=== PATIENT | female | born 1950 | race Caucasian/White ===

== ENCOUNTER 2017-05-02 23:33 | Emergency (ER) | payer MEDICARE, OTHER ==
[~2017-05-02] VITALS: Ht 157.5 cm; Wt 117.9 kg
[~2017-05-02 23:33] MED LIST: CEPHALEXIN500 MG PO; DOXYCYCLINE HY100 MG PO; HYDROXYZINE HCL50 MG PO; IBUPROFEN400 MG PO; MEDROL4 MG PO; NORCO 5-325 TA1 EACH PO
[2017-05-02] MEDS ORDERED: BENADRYL ALLERG25 MG PO (23:53)
[2017-05-03] MEDS ORDERED: FLUOCINONIDE15 G1 TOP (00:22)
[2017-05-03] MEDS ORDERED: DOXYCYCLINE HY100 MG PO (00:22)
== END 2017-05-03 00:40 | disposition home or self-care (01) ==
LOC: ED 23:33
DX: L30.1 Dyshidrosis [pompholyx] (principal); Z88.0 Allergy status to penicillin; Z88.2 Allergy status to sulfonamides; Z91.040 Latex allergy status; Z91.018 Allergy to other foods; Z79.899 Other long term (current) drug therapy
CPT/HCPCS: 99283

== ENCOUNTER 2021-01-22 19:20 | Emergency (ER) | payer MEDICARE, OTHER ==
[~2021-01-22] VITALS: Ht 157.5 cm; Wt 116.1 kg
[~2021-01-22 19:20] MED LIST changes: +BENADRYL ALLERG25 MG PO; +FLUOCINONIDE15 G1 TOP
[2021-01-22] MEDS ORDERED: PRAVASTATIN SOD10 MG PO (19:36)
[2021-01-22] MEDS ORDERED: LISINOPRIL-HCT1 EACH PO (19:36)
== END 2021-01-22 20:37 | disposition home or self-care (01) ==
LOC: ED 19:20
DX: R04.0 Epistaxis (principal); Z88.0 Allergy status to penicillin; Z88.2 Allergy status to sulfonamides; Z88.1 Allergy status to other antibiotic agents; Z91.040 Latex allergy status; Z91.018 Allergy to other foods; Z79.899 Other long term (current) drug therapy
CPT/HCPCS: 99283

== ENCOUNTER 2021-06-07 12:09 | Emergency (ER) | payer MEDICARE, OTHER ==
[~2021-06-07] VITALS: Ht 157.5 cm; Wt 116.1 kg
[~2021-06-07 12:09] MED LIST changes: +LISINOPRIL-HCT1 EACH PO; +PRAVASTATIN SOD10 MG PO
--- NOTE | 2021-06-08 18:38 | EKG ---
[facility] [address] [facility] [place], [place] [address] Signed Sinus tachycardia Right bundle branch block Abnormal ECG No previous ECGs available Confirmed by SIMONA HERNANDEZ DO ([id number]) on 06/08/2021 6:38:34 PM Electronically Signed By: SIMONA HERNANDEZ DO 06/08/21 1838 PATIENT NAME: MISTY BOUDREAUX Electrocardiogram DATE OF : 52 PHYSICIAN: SIMONA HERNANDEZ DO REPORT #: [id number] REPORT IS CONFIDENTIAL AND NOT TO BE RELEASED WITHOUT AUTHORIZATION
== END 2021-06-07 19:41 | disposition short-term general hospital (02) ==
LOC: ED 12:09
DX: U07.1 COVID-19 (principal); J12.82 Pneumonia due to coronavirus disease 2019; J96.00 Acute respiratory failure, unspecified whether with hypoxia or hypercapnia; I10 Essential (primary) hypertension; E78.00 Pure hypercholesterolemia, unspecified; Z88.0 Allergy status to penicillin; Z88.1 Allergy status to other antibiotic agents; Z88.2 Allergy status to sulfonamides; Z91.040 Latex allergy status; Z79.899 Other long term (current) drug therapy
CPT/HCPCS: 31500; 36556; 36600; 43752; 51702; 71045; 80048; 80053; 82800; 82803; 83605; 84484; 85025; 87040; 93005; 93010; 94002; 94640; 94660; 99285-25; C9803; J0696; J1100; J2704; J3010; J7030; J7050; J7060; J7070; U0003